=== PATIENT | male | born 1975 | race Two or more races ===

== ENCOUNTER → 2016-06-13 | Outpatient (CLI) | payer OTHER ==
[~2016-06-13] MED LIST: LIS10T PO
[2016-06-13 07:12] LABS: Urine RBC None Seen /hpf (0 - 3)
[2016-06-13 07:32] LABS: Basophils # (auto) 0 uL; Basophils % (auto) 0.5 % (0.0-2.0); Eosinophils # (auto) 0.3 uL; Eosinophils % (auto) 3.8 % (0.0-7.0); Hematocrit 46.6 % (41.0-53.0); Hemoglobin 16.2 g/dL (13.5-17.5); Lymphocytes # (auto) 2.4 uL; Mean Corpuscular Hemoglobin 30.7 pg (28.0-32.0); Mean Corpuscular Hgb Conc. 34.8 g/dL (32.0-36.0); Mean Corpuscular Volume 88.3 fL (80.0-100.0); Mean Platelet Volume 8.8 fL (7.4-10.4); Monocytes # (auto) 0.8 uL; Monocytes % (auto) 9.9 % (0.0-12.0); Neutrophils # (auto) 4.8 uL; Neutrophils % (auto) 56.8 % (37.0-80.0); Platelet Count (auto) 280 10^3/uL (140-450); Red Cell Distribution Width 12.8 % (11.6-16.0); White Blood Cell 8.4 10^3/uL (4.4-10.8)
[2016-06-13 07:46] LABS: Urine Bilirubin Negative (Negative); Urine Blood Negative /uL (Negative); Urine Color Yellow (Yellow); Urine Glucose Normal (Normal); Urine Ketone Negative (Negative); Urine Nitrite Negative (Negative); Urine Squamous Epithelial Cell FEW /hpf (<5); Urine Urobilinogen Normal (Negative); Urine pH 5.5 (5.0-8.0)
[2016-06-13 08:11] LABS: Albumin 4.4 g/dL (3.4-5.0); BUN/Creatinine Ratio 15.8; Bilirubin, Total 0.6 mg/dL (0.2-1.0); Calcium 9.5 mg/dL (8.5-10.1); Potassium 4.6 mmol/L (3.5-5.1); Total Protein 8.3 g/dL (6.4-8.2)
== END | disposition home or self-care (01) ==
LOC: LAB 06:32
DX: E78.5 Hyperlipidemia, unspecified (principal)
CPT/HCPCS: 36415; 80053; 80061; 81001; 84443; 85025

== ENCOUNTER 2019-09-26 11:20 | Inpatient (IN) | payer BC, OTHER ==
[~2019-09-26] VITALS: Ht 170.2 cm; Wt 109.4 kg
[2019-09-26] MEDS ORDERED: ACETAMINOPHEN 650 mg PER 20 mL UD PO ONE (13:45)
[2019-09-26] MEDS ORDERED: SODIUM CHLORIDE 0.9% 1,000 ML IVB ONE (14:43)
[2019-09-26] MEDS ORDERED: DOXYCYCLINE 100MG/250ML 250 ML IV ONE (14:45)
[2019-09-26] MEDS ORDERED: ZINC SULFATE 220mg CAP or TAB PO ONE (14:45)
[2019-09-26] MEDS ORDERED: AZITHROMYCIN 500MG/ 250ML 250 ML IV ONE (14:45)
[2019-09-26] MEDS ORDERED: ASCORBIC ACID 500 MG TAB PO ONE (14:45)
[2019-09-26 16:00] LABS: Basophils # (auto) 0 10 ^3/uL (0-0.2); Basophils % (auto) 0.5 % (0.0-2.0); Eosinophils # (auto) 0 10 ^3/uL (0-0.8); Eosinophils % (auto) 0.6 % (0.0-7.0); Hematocrit 47.4 % (41.0-53.0); Lymphocytes # (auto) 1.2 10 ^3/uL (0.4-5.4); Lymphocytes % (auto) 15.9 % (10.0-50.0); Mean Corpuscular Hemoglobin 30.7 pg (28.0-32.0); Mean Corpuscular Hgb Conc. 33.9 g/dL (32.0-36.0); Mean Corpuscular Volume 90.6 fL (80.0-100.0); Monocytes # (auto) 0.9 10 ^3/uL (0-1.3); Monocytes % (auto) 12.5 % (0.0-12.0); Neutrophils # (auto) 5.3 10 ^3/uL (1.6-8.6); Neutrophils % (auto) 70.5 % (37.0-80.0); Nucleated Red Blood Cells % 0.1 %; Platelet Count (auto) 200 10^3/uL (140-450); Red Blood Cells 5.22 10^6/uL (4.5-5.90); Red Cell Distribution Width 13.8 % (11.8-14.3); White Blood Cell 7.5 10^3/uL (4.4-10.8)
[2019-09-26 16:15] LABS: INR 1.01 (0.9-1.15); Partial Thromboplastin Time 28.2 sec (23.64-32.05)
[2019-09-26 16:17] LABS: Albumin 4.1 g/dL (3.4-5.0); Calcium 9.1 mg/dL (8.5-10.1); Magnesium 2.1 mg/dL (1.6-2.6)
[2019-09-26 16:18] LABS: BUN/Creatinine Ratio 10.6
[2019-09-26 16:21] LABS: Bilirubin, Total 0.6 mg/dL (0.2-1.0); Lactic Acid w/Reflex 2.5 mmol/L (0.4-2.0); Total Protein 8.4 g/dL (6.4-8.2)
[2019-09-26] MEDS ORDERED: LISI-646 PO (16:57)
[2019-09-26] MEDS ORDERED: NITROGLYCERIN 0.4 MG SL TAB SL PRN (17:45)
[2019-09-26] MEDS ORDERED: ACETAMINOPHEN 500 MG TAB PO PRN (17:45)
[2019-09-26] MEDS ORDERED: traMADol HCL 50 MG TAB PO PRN (17:45)
[2019-09-26] MEDS ORDERED: LACTULOSE 20Gm/30ML SOLN PO PRN (17:45)
[2019-09-26] MEDS ORDERED: MORPHINE SULF INJ 2 MG/ML SYRINGE 1ML IV PRN (17:45)
[2019-09-26] MEDS ORDERED: PROMETHAZINE HCL 25 MG/ML 1ML IV PRN (17:45)
[2019-09-26] MEDS ORDERED: TEMAZEPAM 15 MG CAP PO PRN (17:45)
[2019-09-26] MEDS ORDERED: DexAMETHasone SOD PHOS 10MG/1ML VIAL INJ IV ONE (17:45)
[2019-09-26] MEDS: levoFLOXacin 500MG 100 ML IV SCH (18:21)
[2019-09-26] MEDS: SODIUM CHLORIDE 0.9% 1,000 ML IV SCH (18:21)
[2019-09-26] MEDS: CLINDAMYCIN 600MG IV 50 ML IV SCH (19:43)
[2019-09-26] MEDS: ENOXAPARIN SOD 60 MG/0.6 ML SYRINGE SC SCH ×2 (21:38→22:00)
[2019-09-26] MEDS: LISINOPRIL 10 MG TAB PO SCH (21:39)
[2019-09-26] MEDS: FAMOTIDINE 20 MG TAB PO SCH (22:00)
[2019-09-26] MEDS: BUDESONIDE (INHALATION) 180 MCG IH IN SCH (22:00)
[2019-09-26] MEDS: ALBUTEROL SULF HFA 90MCG INH 200DOSE IN SCH (22:00)
[2019-09-27] VITALS (7 sets, daily range): BP systolic 117–140; BP diastolic 73–89
--- NOTE | 2019-09-27 03:45 | NUR ---
Patient arrived from ED to room 248B Patient arrived by wheelchair and ambulated to the bed. Patient is A&Ox4, respirations even and non-labored with no s/s of distress and on RA at this time. IV patent and intact to the right FA. Telemetry box 21. Discussed POC with patient who verbalized understanding. Oriented patient to the room, bathroom, bed, and call light. VS: T 98.7, HR 85, RR 18, BP 140/84, 94%, 0/10 pain. Bed locked and in the lowest position with 2 side rails up. Call light within reach. Will continue to monitor.
[2019-09-27] MEDS: CLINDAMYCIN 600MG IV 50 ML IV SCH ×3 (06:07→22:56)
[2019-09-27] MEDS: SODIUM CHLORIDE 0.9% 1,000 ML IV SCH ×2 (06:07→22:57)
--- NOTE | 2019-09-27 07:00 | NUR ---
Opening Shift Note Assumed care of patient, awake and alert. No S/S of distress/SOB or pain. Instructed on POC and to call for assist PRN, will continue to monitor for changes Q1hr and PRN.
[2019-09-27] MEDS: BUDESONIDE (INHALATION) 180 MCG IH IN SCH (07:25)
[2019-09-27] MEDS: ALBUTEROL SULF HFA 90MCG INH 200DOSE IN SCH (07:25)
[2019-09-27] MEDS: ENOXAPARIN SOD 60 MG/0.6 ML SYRINGE SC SCH ×2 (10:00→22:56)
[2019-09-27] MEDS: DexAMETHasone SOD PHOS 10MG/1ML VIAL INJ IV SCH (10:35)
[2019-09-27] MEDS: levoFLOXacin 500MG 100 ML IV SCH (10:36)
[2019-09-27] MEDS: ZINC SULFATE 220mg CAP or TAB PO SCH (10:36)
[2019-09-27] MEDS: CHOLECALCIFEROL (VITD3) 1,000UNIT=25mCg TAB PO SCH (10:38)
[2019-09-27] MEDS: ASCORBIC ACID 1,000 MG TAB PO SCH (10:38)
[2019-09-27] MEDS: FAMOTIDINE 20 MG TAB PO SCH ×2 (10:38→22:54)
[2019-09-27] MEDS: LISINOPRIL 10 MG TAB PO SCH ×2 (10:39→22:56)
[2019-09-27 12:44] LABS: Basophils # (auto) 0 10 ^3/uL (0-0.2); Basophils % (auto) 0.2 % (0.0-2.0); Eosinophils # (auto) 0 10 ^3/uL (0-0.8); Hemoglobin 15.5 g/dL (13.5-17.5); Lymphocytes % (auto) 11.1 % (10.0-50.0); Mean Corpuscular Hemoglobin 30.1 pg (28.0-32.0); Mean Corpuscular Hgb Conc. 33.7 g/dL (32.0-36.0); Mean Corpuscular Volume 89.3 fL (80.0-100.0); Monocytes # (auto) 0.8 10 ^3/uL (0-1.3); Monocytes % (auto) 9.2 % (0.0-12.0); Neutrophils # (auto) 6.8 10 ^3/uL (1.6-8.6); Neutrophils % (auto) 79.5 % (37.0-80.0); Nucleated Red Blood Cells % 0.1 %; Platelet Count (auto) 215 10^3/uL (140-450); Red Blood Cells 5.15 10^6/uL (4.5-5.90); Red Cell Distribution Width 13.4 % (11.8-14.3); White Blood Cell 8.6 10^3/uL (4.4-10.8)
[2019-09-27 12:48] LABS: Calcium 9.3 mg/dL (8.5-10.1); Potassium 4.1 mmol/L (3.5-5.1)
[2019-09-27 12:52] LABS: BUN/Creatinine Ratio 10.7; Bilirubin, Total 0.6 mg/dL (0.2-1.0); Total Protein 8.4 g/dL (6.4-8.2)
--- NOTE | 2019-09-27 19:35 | NUR ---
Opening shift note Assumed care of patient from day [facility]. Patient A&Ox4, respirations even without SOB or s/s of distress. Patient denies any pain at this time. Discussed POC with patient who verbalized understanding. IV flushed, patent and intact. Bed in lowest, locked position, call light within reach. Will continue to monitor.
--- NOTE | 2019-09-28 01:40 | NUR ---
ROUNDING Patient resting, with eyes closed, respirations even, non-labored with no s/s of distress. Will continue to monitor.
[2019-09-28 05:00] VITALS: BP 135/78
[2019-09-28] MEDS: CLINDAMYCIN 600MG IV 50 ML IV SCH ×2 (06:41→11:58)
[2019-09-28] MEDS: SODIUM CHLORIDE 0.9% 1,000 ML IV SCH (08:56)
[2019-09-28] MEDS: levoFLOXacin 500MG 100 ML IV SCH (08:57)
[2019-09-28] MEDS: CHOLECALCIFEROL (VITD3) 1,000UNIT=25mCg TAB PO SCH (08:57)
[2019-09-28] MEDS: ZINC SULFATE 220mg CAP or TAB PO SCH (08:57)
[2019-09-28] MEDS: FAMOTIDINE 20 MG TAB PO SCH (08:57)
[2019-09-28] MEDS: DexAMETHasone SOD PHOS 10MG/1ML VIAL INJ IV SCH (08:57)
[2019-09-28] MEDS: ASCORBIC ACID 1,000 MG TAB PO SCH (08:58)
[2019-09-28] MEDS: ENOXAPARIN SOD 60 MG/0.6 ML SYRINGE SC SCH (08:58)
[2019-09-28] MEDS: LISINOPRIL 10 MG TAB PO SCH (08:58)
[2019-09-28 09:00] VITALS: BP 125/75
[2019-09-28 09:06] LABS: Lactic Acid w/Reflex 2.1 mmol/L (0.4-2.0)
[2019-09-28 13:00] VITALS: BP 130/75
[2019-09-28 15:55] VITALS: BP 129/74
--- NOTE | 2019-09-28 16:41 | NUR ---
Discharge instructions given as ordered. Encourage to follow up with PMD as instructed. All questions and concerns addressed. Patient verbalized understanding. Medication reconciliation form completed and copy given to patient. IV removed with catheter intact, pressure dressing applied. Telemetry unit returned to ICU. Patient taken to vehicle via wheelchair with all personal belongings, accompanied by staff and family member. Patient and family member given N95's patient educated on self isolation and discharge instructions. Patient unable to sign due to isolation, patient verbalized understanding. No distress noted at time of departure.
== END 2019-09-28 16:45 | disposition home or self-care (01) | DRG 177 ==
LOC: ER 11:20 → TELE 11:21 → TELE-EAST 09-27 04:32 → TELE-E-ADS 09-27 14:15
PROVIDERS: ADMIT Internal Medicine; ATTEND Internal Medicine
DX: U07.1 COVID-19 (principal); J12.89 Other viral pneumonia; J96.01 Acute respiratory failure with hypoxia; J98.11 Atelectasis; E87.2 Acidosis; I10 Essential (primary) hypertension; E66.01 Morbid (severe) obesity due to excess calories; Z68.37 Body mass index [BMI] 37.0-37.9, adult; Z83.3 Family history of diabetes mellitus; Z82.49 Family history of ischemic heart disease and other diseases of the circulatory system; Z82.5 Family history of asthma and other chronic lower respiratory diseases; Z80.42 Family history of malignant neoplasm of prostate; Z82.3 Family history of stroke
CPT/HCPCS: 36415; 71045; 80053; 82728; 83605; 83735; 85025; 85379; 85610; 85730; 86141; 87040; G0378; J1100; J1956; J3490